=== PATIENT | male | born 1995 | race Caucasian/White ===

== ENCOUNTER → 2016-12-24 | Outpatient (CLI) | payer OTHER ==
[~2016-12-24] MED LIST: ASPI81TA28 PO; IBUP-1105 PO
[2016-12-24 17:30] LABS: BASO % 0.8 %; BASO ABS # 0.05 K/uL (0-0.2); COMPLETE YES; EOS % 2.3 %; HEMATOCRIT 43.8 % (42-52); IG% 0.3 %; LYMPH ABS # 1.44 K/uL (1.2-3.4); MEAN CORPUSCULAR HEMOGLOBIN 29.1 pg (25-34); MEAN CORPUSCULAR HGB CONC 34.2 g/dl (32-36); MEAN PLATELET VOLUME 11.7 fL (7.4-10.4); MONO % 8.7 %; NEUT % 63.9 %; PLATELET COUNT 238 K/uL (130-400); RED BLOOD COUNT 5.15 M/uL (4.7-6.1); WHITE BLOOD COUNT 5.99 K/uL (4.8-10.8)
[2016-12-24 18:22] LABS: ALT/SGPT 27 U/L (12-78); AST/SGOT 13 U/L (15-37); BLOOD UREA NITROGEN 8 mg/dl (7-18); BUN/CREATININE RATIO 6.6 (10-20); CALCIUM 8.8 mg/dl (8.5-10.1); CARBON DIOXIDE 28 mmol/L (21-32); CHLORIDE 105 mmol/L (98-107); GLUCOSE 110 mg/dl (70-99); POTASSIUM 3.7 mmol/L (3.5-5.1); SODIUM 139 mmol/L (136-145)
[2016-12-24 18:25] LABS: ALB/GLOB RATIO 1.2 (0.9-2); ALKALINE PHOSPHATASE 98 U/L (45-117)
== END | disposition home or self-care (01) ==
LOC: C.LABPBG 14:13
PROVIDERS: ATTEND Physician Assistant
DX: R10.11 Right upper quadrant pain (principal)

== ENCOUNTER → 2017-10-07 | Outpatient (CLI) | payer OTHER ==
[2017-10-07 18:08] LABS: BLOOD UREA NITROGEN 9 mg/dl (7-18); CALCIUM 8.8 mg/dl (8.5-10.1); CARBON DIOXIDE 27 mmol/L (21-32); CREATININE 1.24 mg/dl (0.60-1.40); GLUCOSE 125 mg/dl (70-99); POTASSIUM 3.4 mmol/L (3.5-5.1); SODIUM 136 mmol/L (136-145)
[2017-10-08 06:04] LABS: HEMOGLOBIN A1C 5.4 % (4.5-5.6)
== END | disposition home or self-care (01) ==
LOC: C.LABPBG 13:40
PROVIDERS: ATTEND Physician Assistant
DX: R63.1 Polydipsia (principal); R03.0 Elevated blood-pressure reading, without diagnosis of hypertension

== ENCOUNTER 2017-10-29 22:15 | Emergency (ER) | payer OTHER ==
[~2017-10-29] VITALS: Ht 172.7 cm; Wt 100.3 kg
[2017-10-29 22:17] VITALS: TEMP 37.2; Ht 172.7 cm; Wt 100.3 kg
--- NOTE | 2017-10-29 22:49 | EMERGENCY ROOM VISIT NOTE ---
History First contact with patient: 22:26 Chief Complaint: BACK INJURY Stated Complaint: BACK History of Present Illness The patient is a 22 year old male who presents to the Emergency Room for evaluation of back injury. 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 Severe stabbing pain. Worse with movement. Better with rest. No urinary nor bowel control issues. No leg pain. No other trauma nor other injuries. Denies cp, sob, nor other symptoms. No previous back injury per patient. No medications prior to arrival. PMH: Hypertension and Asthma Family: No pertinent issues Social: Works as [employer] at [employer] Review of Systems See HPI for pertinent positives & negatives. A total of 6 systems reviewed and were otherwise negative. Past Medical/Surgical History Medical Problems: (1) Gastritis (2) TIA (transient ischemic attack) Family History Patient reports no known family medical history. Social History Smoking Status: Never Smoker Drug Use: none Marital Status: single Housing Status: lives with family Current/Historical Medications Scheduled Metoprolol Succinate (Toprol Xl), 25 MG PO DAILY Sertraline (Zoloft), 100 MG PO DAILY Scheduled PRN Albuterol Hfa (Ventolin Hfa), 2-4 PUFFS INH Q6H PRN for SOB/Wheezing Physical Exam Vital Signs Date Time Temp Pulse Resp B/P (MAP) Pulse Ox O2 Delivery O2 Flow Rate FiO2 10/29/17 23:28 107 16 168/99 98 10/29/17 22:17 37.2 107 18 161/93 97 Room Air Physical Exam GENERAL: Patient is uncomfortable appearing and in mild distress. EYES: No scleral icterus, unremarkable pupils. ENT: Mucous membranes moist, no nasal congestion. NECK: No masses appreciated, no meningismus, trachea is midline. RESPIRATORY: No dyspnea. Clear to auscultation and equal bilaterally. No wheeze , no rhonchi. CARDIOVASCULAR: Regular rate and rhythm. No murmurs, rubs, gallops appreciated. GASTROINTESTINAL: Abdomen soft, nontender, no peritonitis. Bowel sounds positive. No masses appreciated. BACK: TTP over lower left back just above iliac crest to mid back. Otherwise no midline tenderness, no CVA tenderness EXTREMITIES: Normal motion all extremities, no cyanosis, no edema. NEUROLOGIC: Alert and oriented, no acute motor or sensory deficits, no focal weakness, cranial nerves grossly intact. SKIN: No rash, no jaundice, no diaphoresis. Medical Decision & Procedures ER Provider Diagnostic Interpretation: Lumbar Xrays: 4 view: read by me: indication acute back pain: Mild straightening. Some anterolisthesis. No fracture. No dislocation. Medical Decision Differential: Musculoskeletal, Disc Herniation, Fracture, Cord Compression, Discitis, Sciatica, Cauda Equina, amongst other pathologies entertained. 22 yr old male arrives with complaint of low back pain s/p lifting patient. No neuro deficits nor evidence of cord injury. Imaging without fracture. Likely MSK strain. NSAIDs, rest, Flexeril. Advised 48 hours rest then return to activities but I made clear to him that he must follow with employee health or PCP for full return to work instructions. Blood Pressure Screening Blood pressure disposition: Referred to PCP Impression Primary Impression: Strain of lumbar region Additional Impression: Hypertension Departure Information Dispostion Home / Self-Care Condition GOOD Referrals Employee Health or Primary Provider Patient Instructions ED Sprain Strain Lumbar, My [facility] Additional Instructions You should rest and avoid lifting, twisting, pulling, etc over the next 48 hours then gradually return to normal. Call your Employee Health tomorrow to set up follow up to determine return to work plan. Return to ED if you develop leg weakness, loss of bowel/bladder control, or out of control pain. We are always here to help. Your blood pressure was elevated during this visit. This is quite common in many people who are being evaluated in the Emergency Department for many reasons. However, it is important that you have your Primary Care Provider recheck your blood pressure and discuss whether treatment will be needed. superintendent container terminal elevated blood pressure can lead to strokes, heart attacks, kidney failure amongst other medical issues. If you develop severe headaches, chest pain, weakness in arms or legs, or other concerning symptoms call 911. Problem Qualifiers Primary Impression: Strain of lumbar region Encounter type: initial encounter Qualified Codes: S39.012A - Strain of muscle, fascia and tendon of lower back, initial encounter
[2017-10-29] MEDS ORDERED: CYCL10TA6 PO (23:20)
[2017-10-29 23:28] VITALS: BP 168/99; PULSE 107; O2SAT 98
[2017-10-29] MEDS ORDERED: SERT-234 PO (23:40)
[2017-10-29] MEDS ORDERED: METO25TA4 PO (23:41)
[2017-10-29] MEDS ORDERED: VNTHFA/IN INH (23:42)
--- NOTE | 2017-10-30 07:02 | DIAGNOSTIC IMAGING REPORT ---
L-SPINE MIN 4 VIEWS ROUTINE CLINICAL HISTORY: 22 years-old Male presenting with left low back pain s/p lifting heavy patient. TECHNIQUE: Frontal, bilateral oblique, lateral, and coned in lateral views of the lumbar spine were obtained. COMPARISON: None. FINDINGS: No significant scoliosis. Normal lumbar lordosis. Vertebral bodies maintain normal height and alignment. Intervertebral disc heights preserved. Mild anterior osteophytosis evident at L2-3. No compression deformity or evidence of subluxation. No osseous neural foraminal narrowing. No pars defect. 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 IMPRESSION: Mild degenerative change at L2-3. No acute osseous injury. Electronically signed by: Kostas Bauer M.D. 10/30/2017 7:01 AM Dictated Date/Time: 10/30/2017 6:59 AM
== END 2017-10-29 23:28 | disposition home or self-care (01) ==
LOC: C.EDB 22:17 → C.EDC 23:28
DX: S39.012A Strain of muscle, fascia and tendon of lower back, initial encounter (principal); X50.0XXA Overexertion from strenuous movement or load, initial encounter; Y99.0 Civilian activity done for income or pay; I10 Essential (primary) hypertension; Z86.73 Personal history of transient ischemic attack (TIA), and cerebral infarction without residual deficits

== ENCOUNTER → 2018-03-12 | Day surgery (SDC) | payer OTHER ==
[2018-03-05 10:23] VITALS: Ht 175.3 cm; Wt 100.0 kg
[~2018-03-12] VITALS: Ht 175.3 cm; Wt 100.0 kg
[~2018-03-12] MED LIST changes: -IBUP-1105 PO; +IOPAMIDOL INJ 61% 15 ML VIAL ONE; +LIDOCAINE HCL 1% MPF 5 ML VIAL ONE; +METO25TA4 PO; +SERT-234 PO; +SODIUM CHLORIDE 0.9% INJ 10 ML VIAL ONE; +VNTHFA/IN INH
--- NOTE | 2018-03-12 12:54 | History & Physical Bridge - [place] ---
H&P Re-Evaluation Bridge Note: I have examined the patient, reviewed the History & Physical and in the interval since the performance of the History & Physical I have noted the following changes of clinical significance: No changes noted
--- NOTE | 2018-03-12 13:22 | [facility] Post Operative Brief Note ---
Immediate Operative Summary Operative Date Mar 12, 2018. Pre-Operative Diagnosis L4-5 ANNULAR TEAR WITH LEFT LOWER EXTREMITY RADICULOPATHY Post-Operative Diagnosis SAME Procedure(s) Performed LUMBAR EPIDURAL STEROID INJECTION. Surgeon DR. Clint SMITH Vice President Fixed Income Surgeon(s) None Estimated Blood Loss None Findings Consistent with Post-Op Diagnosis Specimens NA Anesthesia Type Local Disposition Disposition:
--- NOTE | 2018-03-12 13:24 | Discharge Instructions ---
Discharge Instructions Date of Service Mar 12, 2018. Visit Reason for Visit: Lumbar Radiculopathy Discharge Discharge Diagnosis / Problem: left leg pain Discharge Goals Goal(s): Decrease discomfort, Improve function Medications Stopped Medications Name(s): ASA Activity Recommendations Activity Limitations: resume your previous activity Anesthesia . Post Anesthesia Instructions: If you have had General Anesthesia or IV Sedation: * Do not drive today. * Resume driving when surgeon permits. * Do not make important decisions or sign legal documents today. * Call surgeon for: 1. Temperature elevations greater than 101 degrees F. 2. Uncontrollable pain. 3. Excessive bleeding. 4. Persistent nausea and vomiting. 5. Medication intolerance (nausea, vomiting or rash). * For nausea and vomiting use only clear liquids such as: tea, soda, bouillon until nausea subsides, then gradually increase diet as tolerated. * If you have any concerns or questions, call your surgeon's office. If physician is unavailable and it is an emergency, call 911 or go to the nearest emergency room. . Diet Recommendations Recommended Home Diet: resume previous diet Procedures Procedures Performed: LUMBAR EPIDURAL STEROID INJECTION. Pending Studies Studies pending at discharge: no Medical Emergencies . Who to Call and When: Medical Emergencies: If at any time you feel your situation is an emergency, please call 911 immediately. . Non-Emergent Contact Non-Emergency issues call your: Specialist . . "Provider Documentation" section prepared by Shivam Guerrero. .
[2018-03-12 13:30] VITALS: TEMP 37.4
[2018-03-12 13:52] VITALS: BP 124/85; PULSE 88; O2SAT 97
--- NOTE | 2018-03-12 13:56 | OPERATIVE REPORT ---
DATE OF OPERATION: 03/12/2018 PREOPERATIVE DIAGNOSES: L4-L5 annular tear with left lower extremity L4-L5 radiculopathies. POSTOPERATIVE DIAGNOSES: L4-L5 annular tear with left lower extremity L4-L5 radiculopathies. PROCEDURE: Left paramedian L4-L5 intralaminar epidural steroid injection under fluoroscopic guidance. INDICATIONS: The patient is a 22-year-old white male who has had problems with left lower extremity radiculopathy including pain in the leg giving out. MRI revealed a L4-L5 annular tear contacting the L4 nerve root, close approximation of the L5 nerve root on the left side. He presents today for an epidural injection to provide him with relief. PHYSICAL EXAMINATION: GENERAL: Pleasant male seated comfortably. MUSCULOSKELETAL: Lumbar paraspinal muscles were palpated. He had a positive seated straight leg raise of his left lower extremity, decreased sensitivity in the left L5 dermatomal distribution. CONSENT: Verbal and written consent was obtained from the patient. Risks and benefits were reviewed. Risks include but are not limited to epidural abscess, epidural hematoma, allergic reaction, dural puncture. The patient wishes to proceed. DESCRIPTION OF PROCEDURE: The patient was taken back to the special procedures room of [facility] where he was maintained in a prone position. Backside was cleansed with Betadine x3 and a dry sterile dressing was applied. Fluoroscope was used to identify the L4-L5 intralaminar space and overlying skin was anesthetized on the left side with 4 mL of lidocaine 1% with a 25-gauge 1.5-inch needle. A 22-gauge 3.5-inch Tuohy needle was then directed down towards the intralaminar space. It was advanced under lateral fluoroscopic guidance as it was passed down into the muscle space, he had a painful sensation. He felt radiated down the leg, it was probably about 2 inches and the area was then re-anesthetized with an additional mL of lidocaine 1% and then advanced to a depth of 8.5 cm with a presumed loss of resistance. Isovue-300 contrast 1 mL demonstrated to be on the dorsal side of the ligamentum flavum. It was advanced to 0.5 cm to a depth just under 9 cm. Additional 0.5 mL of Isovue was injected and showed it to be in epidural tracing. He then underwent injection after negative aspiration of 40 mg of Depo-Medrol and 4 mL of preservative-free sodium chloride. Injection was well tolerated and reproduced a familiar transient radicular sensation down the leg. DISPOSITION: 1. The patient is taken out into the discharge recovery area where he will be discharged home once discharge criteria are met. 2. Follow up in the [facility] office in 4 weeks' time. I attest to the content of the Intraoperative Record and any orders documented therein. Any exception s are noted below.
== END | disposition home or self-care (01) ==
LOC: X.SURG 11:51
PROVIDERS: ATTEND Physical Medicine & Rehabilitation
DX: M51.86 Other intervertebral disc disorders, lumbar region (principal); M54.16 Radiculopathy, lumbar region; Z79.899 Other long term (current) drug therapy

== ENCOUNTER → 2018-03-26 | Outpatient (CLI) | payer OTHER ==
[~2018-03-26] MED LIST changes: -IOPAMIDOL INJ 61% 15 ML VIAL ONE; -LIDOCAINE HCL 1% MPF 5 ML VIAL ONE; -SODIUM CHLORIDE 0.9% INJ 10 ML VIAL ONE
== END | disposition home or self-care (01) ==
LOC: C.LABPBG 11:18
PROVIDERS: ATTEND Physician Assistant
DX: M25.50 Pain in unspecified joint (principal)

== ENCOUNTER 2024-11-17 18:32 | Observation (INO) ==
[2024-11-17 19:34] LABS: Basophils # (auto) 0.06 K/uL (0.00-0.20); Basophils % (auto) 0.5 %; Eosinophils # (auto) 0.02 K/uL (0.00-0.50); Eosinophils % (auto) 0.2 %; Hematocrit (blood only) 46.9 % (42.0-52.0); Hemoglobin 16.1 g/dl (14.0-18.0); Immature Granulocytes # (auto) 0.06 K/uL (0.01-0.20); Immature Granulocytes % (auto) 0.5 %; Lymphocytes # (auto) 0.84 K/uL (1.20-3.40); Lymphocytes % (auto) 6.4 %; Mean Corpuscular Hemoglobin 28.1 pg (25.0-34.0); Mean Corpuscular Hgb Conc 34.3 g/dL (32.0-36.0); Mean Platelet Volume 10.8 fL (9.4-12.4); Monocytes # (auto) 0.52 K/uL (0.11-0.59); Monocytes % (auto) 3.9 %; Neutrophils # (auto) 11.67 K/uL (1.40-6.50); Neutrophils % (auto) 88.5 %; Platelet Count 390 K/uL (130-400); RDW Coefficient of Variation 12.9 % (11.5-14.5); RDW Standard Deviation 38.4 fL (36.4-46.3); Red Blood Count 5.72 M/uL (4.70-6.10); White Blood Count 13.17 K/ul (4.8-10.8)
[2024-11-17 19:42] LABS: Appearance Urine Clear (Clear); Bilirubin Urine Negative (Negative); Blood Urine Negative (Negative); Color Urine Yellow; Glucose Urine UA Negative (Negative); Ketones Urine Negative (Negative); Leukocyte Esterase Urine Negative (Negative); Nitrite Urine Negative (Negative); Protein Urine Negative (Negative); Specific Gravity Urine 1.003 (1.000-1.030); Urobilinogen Urine Negative (Negative); pH Urine 6.5 (4.5-7.5)
[2024-11-17 19:58] LABS: Alanine Aminotransferase 54 U/L (7-52); Albumin Globulin Ratio 1.5 (0.9-2); Albumin Level 5.6 gm/dl (3.4-5.0); Alkaline Phosphatase 89 U/L (34-104); BUN Creatinine Ratio 6.4 (10-20); Bilirubin,Total 0.7 mg/dl (0.2-1.0); Blood Urea Nitrogen 7 mg/dl (6-23); Calcium 10.8 mg/dl (8.6-10.3); Carbon Dioxide 29 mmol/L (21-32); Chloride 100 mmol/L (98-107); Creatinine Clr Calc Pharmacy 116.3 ml/min; Globulin 3.7 gm/dl (2.5-4.0); Glucose 108 mg/dl (70-99(Fasting)); Lipase 16 U/L (11-82); Total Protein 9.3 gm/dl (6.0-8.3)
[2024-11-17] MEDS: OPTIRAY 320 100ml IV ONE (20:23)
--- NOTE | 2024-11-17 21:41 | Emergency Department Note ---
History of Present Illness General Chief complaint: Abdominal Pain Stated complaint: ABD PAIN Time Seen by Provider: 11/17/24 21:27 History of Present Illness Maximum Pain Intensity: 5 This is a 29-year-old male presenting to the emergency department from home for evaluation of right-sided abdominal pain. Patient symptoms began yesterday and are primarily in the right side low back and right lower quadrant. He went to [facility] today, where he had blood work and CT scan performed. He was told that he had an inflamed appendix, however it was not felt to be surgical by their surgeons. He was given antibiotics and discharged to follow- up as an outpatient. Patient continues with pain despite leaving that facility around 5 PM. He elected to come to this facility immediately afterwards. He does not have a history of abdominal surgery. He has not had anything to eat or drink today. He rates his discomfort a 5/10 and is frustrated that he did not get a definitive answer from the other hospital. He did receive Toradol at that facility and had a large bowel movement, both of which seem to help his symptoms. Home Medications Medication Instructions Recorded Confirmed Type hydroxyzine HCl 25 mg tablet 25 mg PO BID PRN anxiety #60 tabs 07/01/23 11/17/24 Rx albuterol sulfate 90 mcg/actuation 1 - 2 inh inhalation .Q4-6HR PRN 11/17/24 11/17/24 History aerosol inhaler (Ventolin HFA) shortness of breath or wheezing amlodipine 10 mg tablet 10 mg PO HS 11/17/24 11/17/24 History cholecalciferol (vitamin D3) 125 5,000 unit PO HS 11/17/24 11/17/24 History mcg (5,000 unit) tablet (Vitamin D3) clonidine HCl 0.1 mg tablet 0.1 mg PO HS 11/17/24 11/17/24 History sertraline 100 mg tablet 100 mg PO QAM 11/17/24 11/17/24 History oxycodone 5 mg tablet 5 - 10 mg (1 - 2 x 5 mg) PO 11/18/24 Rx .[id number] PRN pain, for initial therapy, max 6 tabs per day #12 tabs Allergies Allergy/AdvReac Type Severity Reaction Status Date / Time hydrochlorothiazide Allergy Severe Anaphylaxis Verified 11/17/24 22:45 fenofibrate Allergy Intermediate Hives Verified 11/17/24 22:45 ondansetron Allergy Intermediate itching Verified 11/17/24 22:45 atorvastatin AdvReac Intermediate muscle Verified 11/17/24 22:45 aches gemfibrozil AdvReac Intermediate LEG PAIN Verified 11/17/24 22:45 citalopram AdvReac Mild foggy Verified 11/17/24 22:45 Past Med/Surg History Problem List (Updated 11/18/24 @ 21:16 by Chriss Pinon PA-C) Appendicitis (Acute) Transient ischemic attack (TIA) 2014 (NO CURRENT PROBLEMS) Vitamin D deficiency Obesity Hypertriglyceridemia Mild aortic sclerosis Dyslipidemia Depression Asthma Hypertension Migraine Anxiety GERD (gastroesophageal reflux disease) Medical History (Updated 11/18/24 @ 21:16 by Chriss Pinon PA-C) Gastric ulcer Hypermagnesemia Protrusion of lumbar intervertebral disc Abnormal mammogram of right breast Degenerative disc disease Temporomandibular joint disorder Surgical History (Updated 11/18/24 @ 11:58 by Jessica Garcia RN) History of laparoscopic appendectomy (11/18/24) Laparoscopic Appendectomy(Not Applicable) - Oscar Weir DO History of tooth extraction Family History Mother Family history of diabetes mellitus Anxiety Heart disease Gallbladder disease Hypertension Kidney disease Kidney stones Cancer Ovarian Ovarian cancer Diabetes Family/Other Family hx colonic polyps Myocardial infarction Grandmother (Maternal) Family hx colonic polyps Father Anxiety Bipolar disorder Heart disease Depression Gallbladder disease Hypertension Kidney disease Kidney stones Diabetes TYPE 2 Sister Anxiety Grandfather (Maternal) Prostate cancer Aunt Diabetes Uncle Diabetes Denies family history of Breast cancer Colorectal cancer Social History Smoking Status: Never smoker Tobacco Type: Smokeless Tobacco (Dip or Chew) Age Started Using Tobacco: 17; Cigarettes Per Day: 2-3 per week; Second Hand Exposure: No; Do You Dip or Chew Tobacco: Yes; Hx Alcohol Use: No Hx Substance Use: No Preferred Language: Ivorian Communication Ability: Effective Visual Impairment: No Limitations Hearing Ability: Normal Collection Correspondent Required: No Beliefs That Will Affect Care: None marital status: Current Living Situation: Spouse Current Living Situation Comment: Lives with and two children. current occupational status: employed How many Children do You have: 2 Feels Safe at Home: Yes Childhood Exposure to Second-Hand Smoke: Yes Diet: regular caffeine: Yes (soda x 2 cups per day.) during the past year weight has: remained stable Dental Care, Regularly: No Physical Activity Frequency: Daily Physical Activity Frequency Comment: Limited by physical activity Seatbelt Use: always Sunscreen Use: No Assistive Devices: None Review of Systems A total of 10 systems reviewed and were otherwise negative Physical Exam Vital Signs Vital Signs - 24 hr 11/17/24 21:49 11/17/24 22:00 11/17/24 23:09 Pulse Rate 81 78 81 Pulse Rate from SpO2 Sensor 78 79 Respiratory Rate 20 21 Blood Pressure 114/88 142/103 H Blood Pressure Mean 91 116 Pulse Oximetry 95 96 11/18/24 00:00 Pulse Rate 77 Pulse Rate from SpO2 Sensor 80 Respiratory Rate 16 Blood Pressure 154/93 H Blood Pressure Mean 113 Pulse Oximetry 97 VITALS: Vitals are noted on the nurse's note and reviewed by myself. Vital signs stable. GENERAL: Well-developed, well-nourished, white male, who is in no acute distress and resting comfortably. Patient is cooperative with the examination. HEAD: Normocephalic atraumatic. NECK: Supple without nuchal rigidity. No lymphadenopathy. No thyromegaly. Cervical spine is nontender. HEART: Regular rate and rhythm without murmurs gallops or rubs. LUNGS: Clear to auscultation bilaterally without wheezes, rales or rhonchi. No retractions or accessory muscle use. ABDOMEN: Positive normal bowel sounds x 4. Soft, nontender, without masses or organomegaly. No guarding or rebound tenderness. MUSCULOSKELETAL: No muscle atrophy, erythema, or edema noted. Full range of motion in all extremities. No tenderness to palpation. NEURO: Patient was alert and oriented to person place and time. CN II through XII grossly intact. Course Administered Medications Discontinued Medications Amlodipine Besylate (Amlodipine Besylate 5 Mg Tab) 10 mg PO NOW ONE Stop: 11/18/24 00:30 Last Admin: 11/18/24 01:29 Dose: 10 mg Documented By: LOTTIE Bupivacaine HCl/Epinephrine Bitart (Bupivacaine/Epinephrine 0.5% Mpf 1:200,000 30 Ml Vial) Confirm Administered Dose 30 ml .ROUTE .STK-MED ONE Stop: 11/18/24 10:12 Last Admin: 11/18/24 10:58 Dose: 30 ml Documented By: ALEX Clonidine HCl (Clonidine Hcl 0.1 Mg Tab) 0.1 mg PO NOW ONE Stop: 11/18/24 00:30 Last Admin: 11/18/24 01:29 Dose: 0.1 mg Documented By: LOTTIE Piperacillin Sod/Tazobactam Sod (Zosyn) 4.5 gm in 100 mls @ 200 mls/hr IV NOW ONE; Protocol Stop: 11/18/24 00:50 Last Infusion: 11/18/24 02:38 Dose: Infused Documented By: Admin: 11/18/24 01:29 Dose: 200 mls/hr Documented By: LOTTIE Sodium Chloride (Nss) 1,000 mls @ 100 mls/hr IV .Q10H JETHRO Stop: 11/19/24 00:29 Last Admin: 11/18/24 12:14 Dose: Not Given Documented By: Admin: 11/18/24 01:33 Dose: 100 mls/hr Documented By: LOTTIE Acetaminophen (Ofirmev) 1,000 mg in 100 mls @ 400 mls/hr IV Q8H PRN PRN Reason: Moderate Pain (Scale 4, 5, 6) Stop: 11/21/24 00:20 Last Infusion: 11/18/24 12:45 Dose: Infused Documented By: Admin: 11/18/24 12:30 Dose: 400 mls/hr Documented By: MARGOT Piperacillin Sod/Tazobactam Sod (Zosyn) 4.5 gm in 100 mls @ 25 mls/hr IV Q8H JETHRO; Protocol Stop: 11/28/24 07:59 Last Infusion: 11/18/24 12:38 Dose: Infused Documented By: Admin: 11/18/24 08:38 Dose: 25 mls/hr Documented By: MARGOT Ioversol (Optiray 320 100ml) 93 ml IV ONCE ONE Stop: 11/17/24 20:23 Last Admin: 11/17/24 20:23 Dose: 93 ml Documented By: MIRANDA Medical Decision Making Differential Diagnosis Differential diagnosis: Etiologies such as biliary colic, cholecystitis, hepatitis, pancreatitis, cardiac disease, pancreatitis, gastritis, peptic ulcer disease, appendicitis, cystitis, diverticulitis, mesenteric ischemia, inflammatory bowel disease, ileus, bowel obstruction, testicular/adnexal torsion, aortic pathology, shingles, as well as others were considered Laboratory Data 11/18/24 06:07 11/18/24 06:07 Lab Results 11/17/24 11/17/24 Range/Units 19:15 20:31 WBC 13.17 H (4.8-10.8) K/ul RBC 5.72 (4.70-6.10) M/uL Hgb 16.1 (14.0-18.0) g/dl Hct 46.9 (42.0-52.0) % MCV 82.0 (80.0-100.0) fL MCH 28.1 (25.0-34.0) pg MCHC 34.3 (32.0-36.0) g/dL RDW Std Deviation 38.4 (36.4-46.3) fL RDW Coeff of Tana 12.9 (11.5-14.5) % Plt Count 390 (130-400) K/uL MPV 10.8 (9.4-12.4) fL Immature Gran % (Auto) 0.5 % Neut % (Auto) 88.5 % Lymph % (Auto) 6.4 % Ida % (Auto) 3.9 % Eos % (Auto) 0.2 % Baso % (Auto) 0.5 % Neut # (Auto) 11.67 H (1.40-6.50) K/uL Lymph # (Auto) 0.84 L (1.20-3.40) K/uL Ida # (Auto) 0.52 (0.11-0.59) K/uL Eos # (Auto) 0.02 (0.00-0.50) K/uL Baso # (Auto) 0.06 (0.00-0.20) K/uL Immature Gran # (Auto) 0.06 (0.01-0.20) K/uL Sodium TNP 134 L Potassium TNP 4.0 Chloride 100 (98-107) mmol/L Carbon Dioxide 29 (21-32) mmol/L Anion Gap TNP BUN 7 (6-23) mg/dl Creatinine 1.10 (0.6-1.4) mg/dl Est Cr Clr Drug Dosing 116.3 ml/min eGFR 93.19 BUN/Creatinine Ratio 6.4 L (10-20) Glucose 108 H (70-99(Fasting)) mg/dl Calcium 10.8 H (8.6-10.3) mg/dl Total Bilirubin 0.7 (0.2-1.0) mg/dl AST TNP 19 ALT 54 H (7-52) U/L Alkaline Phosphatase 89 (34-104) U/L Total Protein 9.3 H (6.0-8.3) gm/dl Albumin 5.6 H (3.4-5.0) gm/dl Globulin 3.7 (2.5-4.0) gm/dl Albumin/Globulin Ratio 1.5 (0.9-2) Lipase 16 (11-82) U/L Urine Color Yellow Urine Appearance Clear (Clear) Urine pH 6.5 (4.5-7.5) Ur Specific [place] 1.003 (1.000-1.030) Urine Protein Negative (Negative) Urine Glucose (UA) Negative (Negative) Urine Ketones Negative (Negative) Urine Blood Negative (Negative) Urine Nitrite Negative (Negative) Urine Bilirubin Negative (Negative) Urine Urobilinogen Negative (Negative) Ur Leukocyte Esterase Negative (Negative) Imaging Data Radiologist's Impression: Abdomen/Pelvis CT 11/17/24 20:05 Exam(s): CT ABDOMEN + PELVIS With Contrast IV Amt: 93 ml opti 320 EXAM: CT Abdomen and Pelvis With Intravenous Contrast CLINICAL HISTORY: Reason for exam: RLQ abd pain. TECHNIQUE: Axial computed tomography images of the abdomen and pelvis with intravenous contrast. CTDI is 27.15 mGy and DLP is 1535.92 mGy-cm. Automated exposure control was utilized for the study. A dose lowering technique was utilized adhering to the principles of ALARA. CONTRAST: Patient received 93 ml opti 320 of IV contrast COMPARISON: No relevant prior studies available. FINDINGS: ABDOMEN: Liver: Hepatic steatosis. Gallbladder and bile ducts: Unremarkable. Pancreas: Unremarkable. Spleen: Unremarkable. Adrenals: Unremarkable. Kidneys and ureters: Unremarkable. No obstructing stones. No hydronephrosis. Stomach and bowel: Unremarkable. PELVIS: Appendix: Proximal appendix distended up to 1.1 cm. The distal portion of the appendix is nondistended. No appendicolith or significant inflammation. Bladder: Unremarkable. Reproductive: Unremarkable as visualized. ABDOMEN and PELVIS: Intraperitoneal space: Acute abnormality within the abdomen or pelvis. No free air. No significant fluid collection. Bones/joints: No acute fracture. Soft tissues: Unremarkable. Vasculature: Unremarkable. Lymph nodes: Unremarkable. IMPRESSION: 1. Proximal appendix distended up to 1.1 cm. The distal portion of the appendix is nondistended. No appendicolith or significant inflammation. Findings are equivocal for acute appendicitis. 2. Hepatic steatosis. Electronically signed by: Cipriano Brooke MD 11/17/24 23:17 PM MDM Narrative Physical exam and history were performed. Nursing notes, EMR, and Medication List were personally reviewed. No social concerns were identified as barriers to patients care. History was provided by the Patient. Patient appears to have right-sided abdominal pain bring him to the ER. He reportedly has an enlarged appendix based on evaluation at another facility earlier today. I do not have access to those records. IV access was established and labs were obtained. He was made n.p.o. and hydrated with normal saline. Patient's blood work is as above and was reviewed. He does have a slightly elevated white count of 13,000. He does not have significant anemia, bandemia, or gross electrolyte imbalance. Lipase and transaminases are not diagnostic. Urine without distinct evidence of infection. Because of his pain and elevated white count CT scan of the abdomen and pelvis was performed with IV contrast. CT scan was reviewed by myself and radiology and is equivocal for acute appendicitis. Escalation of care is felt to be necessary. Case was discussed with the on-call surgical team, who did agree to evaluate the patient here in the ER. Please see their dictation for further patient course, plan, and disposition. The chart was completed utilizing [employer] Speech Voice Recognition Software. Grammatical errors, random word insertions, pronoun errors, and incomplete sentences are an occasional consequence of this system due to software limitations, ambient noise, and hardware issues. Any formal questions or concerns about the content, text, or information contained within the body of this dictation should be directly addressed to the provider for clarification. Impression & Plan Appendicitis Discharge Plan Visit Data Chief Complaint: Abdominal Pain Stated Complaint: ABD PAIN ED Provider: Jarod Padilla ED Midlevel Provider: Chriss Pinon Discharge Problem: Appendicitis Patient Disposition: Admitted As Inpatient Discharge Instructions Interventions: ED Discharge Assessment Last Done: 11/18/24 01:52
--- NOTE | 2024-11-17 23:17 | CT Scan Report ---
Exam(s): CT ABDOMEN + PELVIS With Contrast IV Amt: 93 ml opti 320 EXAM: CT Abdomen and Pelvis With Intravenous Contrast CLINICAL HISTORY: Reason for exam: RLQ abd pain. TECHNIQUE: Axial computed tomography images of the abdomen and pelvis with intravenous contrast. CTDI is 27.15 mGy and DLP is 1535.92 mGy-cm. Automated exposure control was utilized for the study. A dose lowering technique was utilized adhering to the principles of ALARA. CONTRAST: Patient received 93 ml opti 320 of IV contrast COMPARISON: No relevant prior studies available. FINDINGS: ABDOMEN: Liver: Hepatic steatosis. Gallbladder and bile ducts: Unremarkable. Pancreas: Unremarkable. Spleen: Unremarkable. Adrenals: Unremarkable. Kidneys and ureters: Unremarkable. No obstructing stones. No hydronephrosis. Stomach and bowel: Unremarkable. PELVIS: Appendix: Proximal appendix distended up to 1.1 cm. The distal portion of the appendix is nondistended. No appendicolith or significant inflammation. Bladder: Unremarkable. Reproductive: Unremarkable as visualized. ABDOMEN and PELVIS: Intraperitoneal space: Acute abnormality within the abdomen or pelvis. No free air. No significant fluid collection. Bones/joints: No acute fracture. Soft tissues: Unremarkable. Vasculature: Unremarkable. Lymph nodes: Unremarkable. IMPRESSION: 1. Proximal appendix distended up to 1.1 cm. The distal portion of the appendix is nondistended. No appendicolith or significant inflammation. Findings are equivocal for acute appendicitis. 2. Hepatic steatosis. Electronically signed by: Cipriano Brooke MD 11/17/24 23:17 PM
[2024-11-18] MEDS ORDERED: MoRPHine SULFATE 4 MG/ML 1 ML CARP\\VIAL IV PRN ×2 (00:21→11:55)
--- NOTE | 2024-11-18 00:21 | History & Physical Report ---
Date of Service November 18, 2024 Assessment & Plan (1) Appendicitis: Plan: Due to the findings on imaging as well as the patient's lab work and reported symptomatology he will be admitted to the surgical service proceeding as follows: Will continue patient on antibiotics. He was prescribed oral Augmentin at a previous institution so we will maintain him on Zosyn Will implement n.p.o. status Will hydrate with IV fluids Analgesia will be provided Antiemetics we provided I discussed the case with my attending physician and then discussed with the patient and we provided the patient with 3 possible options: Patient be discharged home on oral antibiotics (my attending physician felt that this was a least febrile option due to the findings on CT scan as well as the patient's elevated white blood cell count) Patient be admitted to the hospital we can observe him on antibiotics and repeat laboratories in the morning and a determination will be made if patient will require surgery Patient admitted to the hospital, placed on oral antibiotics and tentatively scheduled for appendectomy with Dr. Weir the morning of 11/18/2024 After careful consideration the patient is agreeable to admission to the hospital. We will tentatively place him on the surgical schedule for Dr. Weir but prior to definitively committing to surgery the patient would like to discuss further with Dr. Weir in the morning. Will use SCDs for DVT prevention, no chemical means until his ascertain whether or not the patient will require surgery He will be a level 1 full code As above. Clinically consistent with acute appendicitis. He has a history of this in the past in [place] treated with antibiotics alone. We discussed the risks as well as options. Risks include bleeding, infection, injury to other organ, blood clots etc. Following our discussion I answered all of his questions. We will proceed this morning with laparoscopic appendectomy. History of Present Illness Chief Complaint: Possible appendicitis Primary Care Provider: Yumiko Malcolm This is a 29-year-old male who presented to [facility] emergency department secondary to right flank pain. Patient notes that earlier today he developed some right-sided flank pain for which he presented to [facility]. He said that while at [facility] he did have a CT scan where there is concern he may have had appendicitis. The patient further reports they could not definitively ascertain if he had appendicitis because he was told that they did not utilize contrast on his CT scan. They therefore discharged the patient home on oral Augmentin. Patient then presented to [facility] due to similar concerns. As noted he had some right flank pain earlier today. He did not have any fevers, shakes, or chills. He did not report any nausea or vomiting. He notes that he has never had any abdominal surgeries. Of note, the patient does report that several years ago he did have some right sided abdominal pain and he was told that he had a "dilated appendix". Since arrival to the hospital the patient has had labs and imaging which I independent reviewed. A CT scan of the abdomen pelvis showed the patient's proximal appendix was distended to approximately 1.1 cm. The distal portion of the appendix was not distended. There is no appendicolith or significant inflammation of the appendix. The interpreting radiologist felt these findings were equivocal for appendicitis. Labs included CBC white blood cell count was elevated 13.1. Hemoglobin and hematocrit were both noted to be normal. Platelet count was noted to be normal. Chemistry profile showed sodium is 134 with a potassium of 4.0. BUN and creatinine were both normal. The urinalysis was not indicative of infection. At the time my interview the patient was resting comfortably in bed he was in no distress. Concerning past medical history the patient reports he has a history of hypertension, asthma which is well-controlled, and anxiety Concerning past surgical history he denies ever having any surgeries requiring general anesthesia. Concerning social history he does not smoke but he uses smokeless tobacco. Concerning family history he does not report a family history of anesthesia complications. Allergies Allergy/AdvReac Type Severity Reaction Status Date / Time hydrochlorothiazide Allergy Severe Anaphylaxis Verified 11/17/24 22:45 fenofibrate Allergy Intermediate Hives Verified 11/17/24 22:45 ondansetron Allergy Intermediate itching Verified 11/17/24 22:45 atorvastatin AdvReac Intermediate muscle Verified 11/17/24 22:45 aches gemfibrozil AdvReac Intermediate LEG PAIN Verified 11/17/24 22:45 citalopram AdvReac Mild foggy Verified 11/17/24 22:45 Home Medications Medication Instructions Recorded Confirmed Type hydroxyzine HCl 25 mg tablet 25 mg PO BID PRN anxiety #60 tabs 07/01/23 11/17/24 Rx albuterol sulfate 90 mcg/actuation 1 - 2 inh inhalation .Q4-6HR PRN 11/17/24 11/17/24 History aerosol inhaler (Ventolin HFA) shortness of breath or wheezing amlodipine 10 mg tablet 10 mg PO HS 11/17/24 11/17/24 History amoxicillin 875 mg-potassium 1 tab PO BID 11/17/24 11/17/24 History clavulanate 125 mg tablet cholecalciferol (vitamin D3) 125 5,000 unit PO HS 11/17/24 11/17/24 History mcg (5,000 unit) tablet (Vitamin D3) clonidine HCl 0.1 mg tablet 0.1 mg PO HS 11/17/24 11/17/24 History sertraline 100 mg tablet 100 mg PO QAM 11/17/24 11/17/24 History oxycodone 5 mg tablet 5 - 10 mg (1 - 2 x 5 mg) PO 11/18/24 Rx .[id number] PRN pain, for initial therapy, max 6 tabs per day #12 tabs Past Med/Surg History Problem List (Updated 11/18/24 @ 00:18 by Alexsander Menard PA-C) Appendicitis Transient ischemic attack (TIA) 2014 (NO CURRENT PROBLEMS) Vitamin D deficiency Obesity Hypertriglyceridemia Mild aortic sclerosis Dyslipidemia Depression Asthma Hypertension Migraine Anxiety GERD (gastroesophageal reflux disease) Medical History Gastric ulcer Hypermagnesemia Protrusion of lumbar intervertebral disc Abnormal mammogram of right breast Degenerative disc disease Temporomandibular joint disorder Surgical History History of tooth extraction Family History Mother Family history of diabetes mellitus Anxiety Heart disease Gallbladder disease Hypertension Kidney disease Kidney stones Cancer Ovarian Ovarian cancer Diabetes Family/Other Family hx colonic polyps Myocardial infarction Grandmother (Maternal) Family hx colonic polyps Father Anxiety Bipolar disorder Heart disease Depression Gallbladder disease Hypertension Kidney disease Kidney stones Diabetes TYPE 2 Sister Anxiety Grandfather (Maternal) Prostate cancer Aunt Diabetes Uncle Diabetes Denies family history of Breast cancer Colorectal cancer Social History Smoking Status: Never smoker Tobacco Type: Smokeless Tobacco (Dip or Chew) Age Started Using Tobacco: 17; Cigarettes Per Day: 2-3 per week; Second Hand Exposure: No; Do You Dip or Chew Tobacco: Yes; Tobacco Cessation Education Requested by Patient: No Hx Alcohol Use: No Hx Substance Use: No Preferred Language: Kittitian Communication Ability: Effective Visual Impairment: No Limitations Hearing Ability: Normal Optometrist Required: No Beliefs That Will Affect Care: None marital status: Current Living Situation: Spouse Current Living Situation Comment: Lives with and two children. current occupational status: employed How many Children do You have: 2 Other Information That Helps Us Care for You: No Feels Safe at Home: Yes Safety Concerns: Feels Safe At This Time Childhood Exposure to Second-Hand Smoke: Yes Diet: regular caffeine: Yes (soda x 2 cups per day.) during the past year weight has: remained stable Dental Care, Regularly: No Physical Activity Frequency: Daily Physical Activity Frequency Comment: Limited by physical activity Seatbelt Use: always Sunscreen Use: No Assistive Devices: None Review of Systems Review of Systems: All systems reviewed & are unremarkable except as noted in HPI & below Physical Exam Constitutional: well developed; + not well nourished and no acute distress Eyes: no conjunctival abnormality ENMT: Ears: no hearing impairment and no external ear abnormality Mouth: no oropharynx abnormality Neck: trachea midline Respiratory: normal respiratory effort; no respiratory distress and no labored breathing Cardiovascular: Rate/Rhythm: regular rate and regular rhythm Gastrointestinal (Abdomen): At the time of my exam patient's abdomen is soft without distention. There is no rebound tenderness or guarding. There are no signs of peritonitis. Patient only had very faint pressure reported when palpating the right lower quadrant. Musculoskeletal: No calf tenderness Skin: no rashes Neurologic: moves all extremities Psychiatric: A+Ox3, euthymic affect Genitourinary: No CVA tenderness with percussion bilaterally Results & Data Results & Data Vital Signs (Past 12 Hours) Vital Signs Temp Pulse Resp BP Pulse Ox O2 Del Method 11/17/24 23:09 81 21 142/103 H 96 11/17/24 22:00 78 20 114/88 95 11/17/24 21:49 81 11/17/24 19:00 36.7 C 92 H 18 169/104 H 98 Room Air PG Care Time/CCT Total # of Minutes Spent Total Time Spent with Patient: Total time spent is greater than 50% in coordination of care (as documented) at patient's floor/unit and/or counseling patient: Coding Level of Care Code 30276 INT INP/OBS CARE MIN Diagnoses Appendicitis K37
[2024-11-18] MEDS: cloNIDine HCL 0.1 MG TAB PO ONE (01:29)
[2024-11-18] MEDS: amLODIPine BESYLATE 5 MG TAB PO ONE (01:29)
[2024-11-18] MEDS: PIPERACILLIN/TAZOBACTAM 4.5 GM/100 ML BAG IV ONE (01:29)
[2024-11-18] MEDS: SODIUM CHLORIDE 0.9% 1,000 ML IV SCH (01:33)
[2024-11-18] MEDS ORDERED: hydrOXYzine HCl 25 MG TAB PO PRN (02:25)
[2024-11-18] MEDS ORDERED: ALBUTEROL HFA 8 GM INHALER INH PRN (02:25)
[2024-11-18 03:43] LABS: Partial Thromboplastin Ratio 1.1; Partial Thromboplastin Time 30 Seconds (21-31); Prothrombin Time 10.7 Seconds (9.0-12.0)
[2024-11-18 06:43] LABS: Basophils # (auto) 0.08 K/uL (0.00-0.20); Basophils % (auto) 0.9 %; Eosinophils # (auto) 0.05 K/uL (0.00-0.50); Eosinophils % (auto) 0.5 %; Hematocrit (blood only) 39.2 % (42.0-52.0); Hemoglobin 13.4 g/dl (14.0-18.0); Immature Granulocytes # (auto) 0.15 K/uL (0.01-0.20); Immature Granulocytes % (auto) 1.6 %; Lymphocytes # (auto) 1.27 K/uL (1.20-3.40); Lymphocytes % (auto) 13.8 %; Mean Corpuscular Hemoglobin 27.9 pg (25.0-34.0); Mean Corpuscular Hgb Conc 34.2 g/dL (32.0-36.0); Mean Corpuscular Volume 81.7 fL (80.0-100.0); Mean Platelet Volume 10.5 fL (9.4-12.4); Monocytes # (auto) 0.74 K/uL (0.11-0.59); Neutrophils # (auto) 6.94 K/uL (1.40-6.50); Neutrophils % (auto) 75.2 %; Platelet Count 284 K/uL (130-400); RDW Coefficient of Variation 12.9 % (11.5-14.5); RDW Standard Deviation 38.6 fL (36.4-46.3); White Blood Count 9.23 K/ul (4.8-10.8)
[2024-11-18 07:40] LABS: Calcium 9.3 mg/dl (8.6-10.3); Potassium 3.7 mmol/L (3.5-5.1)
[2024-11-18 07:46] LABS: BUN Creatinine Ratio 9.3 (10-20); Creatinine Clr Calc Pharmacy 118.5 ml/min
[2024-11-18] MEDS ORDERED: DEXAMETHASONE SOD INJ 4 MG/ML VIAL ONE (08:26)
[2024-11-18] MEDS ORDERED: PROPOFOL IV EMULSION 10 MG/ML 20 ML VIAL IV ONE (08:26)
[2024-11-18] MEDS ORDERED: MIDAZOLAM HCL 1 MG/ML 2ML VIAL ONE (08:26)
[2024-11-18] MEDS ORDERED: fentaNYL citrate PF 100 MCG/2 ML VIAL ONE ×2 (08:26→10:41)
[2024-11-18] MEDS ORDERED: ONDANSETRON INJ 2 MG/ML 2 ML VIAL ONE (08:26)
[2024-11-18] MEDS ORDERED: LIDOCAINE 2% 2 ML VIAL/AMP(20MG/ML) INFIL ONE (08:26)
[2024-11-18] MEDS ORDERED: ROCURONIUM BROMIDE 10 MG/ML 5 ML VIAL IV ONE (08:26)
--- OUTSIDE RECORDS SUMMARY | 2024-11-18 08:35 | External Medical Summary ---
Author Name Unknown Address Unknown Organization : Laboratory Report Ordering Provider Test Date Status LIZZ CHACON 06/24/2024 08:51:40 Final Observation Date Value Abnormality Reference (Units ) Status TSH AB 06/24/2024 08:51:40 NEGATIVE NEGATIVE Final This test was developed and its analytical
performance characteristics have been determined
by [employer] It has not been cleared or
approved by FDA. This assay has been validated
pursuant to the CLIA regulations and is used for
clinical purposes.
Test performed by [email or web address]
[address],
[place] [address]

Depalletizer Operator: Carey Ozuna MD,PHD,BRENNAN
Test Reported by [facility],
[employer] [facility],
[address], [place]
Everardo Bro M.D., Ph.D., Director of Laboratories
[phone], CLIA [id number] Performing Location
--- OUTSIDE RECORDS SUMMARY | 2024-11-18 08:35 | External Medical Summary ---
Author Name Unknown Address Unknown Organization K01:[facility] [address] [place] [address] Laboratory Report Ordering Provider Test Date Status LIZZ CHACON 06/24/2024 08:51:40 Final Observation Date Value Abnormality Reference (Units ) Status Magnesium 06/24/2024 08:51:40 2.4 1.5-2.6 (m g/dL) Final Performing Location [facility] - [address] [place] [address]
--- OUTSIDE RECORDS SUMMARY | 2024-11-18 08:35 | External Medical Summary ---
Author Name Unknown Address Unknown Organization K01:LABORATORY [facility] [place] - [address] [place] [address] Laboratory Report Ordering Provider Test Date Status LIZZ CHACON 06/24/2024 08:51:40 Final Observation Date Value Abnormality Reference (Units ) Status CRP, low-sensitivity 06/24/2024 08:51:40 <3 <=5 (mg/L) Final Performing Location [facility] - [address] [place] [address]
--- OUTSIDE RECORDS SUMMARY | 2024-11-18 08:35 | External Medical Summary ---
Author Name Unknown Address Unknown Organization K01:LABORATORY [facility] [place] - [address] [place] [id number] Laboratory Report Ordering Provider Test Date Status LIZZ CHACON 06/24/2024 08:51:40 Final Observation Date Value Abnormality Reference (Units ) Status Erythrocyte sedimentation rate by Photometric method 06/24/2024 08:51:40 6 <15 (mm/hour) Final Performing Location [facility] - [address] [place] [id number]
--- OUTSIDE RECORDS SUMMARY | 2024-11-18 08:35 | External Medical Summary ---
Author Name Unknown Address Unknown Organization K01:LABORATORY [facility] [place] - [address] [facility] [address] Laboratory Report Ordering Provider Test Date Status LIZZ CHACON 06/24/2024 08:51:40 Final Observation Date Value Abnormality Reference (Units ) Status WBC, Total 06/24/2024 08:51:40 6.13 4.00-10.80 (K/uL) Final RBC 06/24/2024 08:51:40 4.81 4.50-5.25 (M/uL) Final Hemoglobin 06/24/2024 08:51:40 13.9 Below low normal 14.0-16.8 (g/dL) Final HCT 06/24/2024 08:51:40 41.8 40.0-48.4 (%) Final MCV 06/24/2024 08:51:40 86.9 82.0-99.5 (fL) Final MCH 06/24/2024 08:51:40 28.9 27.0-34.0 (pg) Final MCHC 06/24/2024 08:51:40 33.3 32.0-36.0 (g/dL) Final RDW 06/24/2024 08:51:40 12.6 11.5-15.5 (%) Final Platelets 06/24/2024 08:51:40 300 140-400 (K/uL) Final MPV 06/24/2024 08:51:40 11.5 6.6-11.1 (fL) Final Nucleated erythrocytes/100 leukocytes [Ratio] in Blood by Automated count 06/24/2024 08:51:40 0 <=0 (/100 WBCs) Final Performing Location LABORATORY [facility] [place] - [address] [facility] [address]
--- OUTSIDE RECORDS SUMMARY | 2024-11-18 08:35 | External Medical Summary ---
Author Name Unknown Address Unknown Organization K01:[facility] [place] [address] [facility] [address] Laboratory Report Ordering Provider Test Date Status LIZZ CHACON 06/24/2024 08:51:40 Final Observation Date Value Abnormality Reference (Units ) Status Color of Urine by Auto 06/24/2024 08:51:40 Colorless Colorless, Light Yellow, Yellow, Dark Yellow Final Clarity, Urine 06/24/2024 08:51:40 Clear Clear Final Glucose [Mass/volume] in Urine by Automated test strip 06/24/2024 08:51:40 Negative Negative (mg/dL) Final Bilirubin.total [Presence] in Urine by Automated test strip 06/24/2024 08:51:40 Negative Negative Final Ketones [Mass/volume] in Urine by Automated test strip 06/24/2024 08:51:40 Negative Negative (mg/dL) Final Specific gravity, Urine 06/24/2024 08:51:40 1.003 1.003-1.030 Final Hemoglobin [Presence] in Urine by Automated test strip 06/24/2024 08:51:40 Negative Negative Final pH, Urine 06/24/2024 08:51:40 6.5 5.0-7.5 (Units) Final Protein [Mass/volume] in Urine by Automated test strip 06/24/2024 08:51:40 Negative Negative (mg/dL) Final Urobilinogen [Mass/volume] in Urine by Automated test strip 06/24/2024 08:51:40 Normal Normal (mg/dL) Final Nitrite [Presence] in Urine by Automated test strip 06/24/2024 08:51:40 Negative Negative Final Leukocyte esterase [Presence] in Urine by Automated test strip 06/24/2024 08:51:40 Negative Negative Final RBC, Urine 06/24/2024 08:51:40 0-2 0-2 (/HPF) Final WBC, Urine 06/24/2024 08:51:40 0-2 0-2 (/HPF) Final Bacteria [#/area] in Urine sediment by Microscopy high power field 06/24/2024 08:51:40 0-25 0-25 (/HPF) Final [facility] 06/24/2024 08:51:40 Final Culture not indicated by uri nalysis results\X09\ Performing Location [facility] [place] [facility] [address] [facility] [address]
--- OUTSIDE RECORDS SUMMARY | 2024-11-18 08:35 | External Medical Summary ---
Author Name Unknown Address Unknown Organization K01:LABORATORY [facility] [place] - [address] [place] [address] Laboratory Report Ordering Provider Test Date Status LIZZ CHACON 06/24/2024 08:51:40 Final Observation Date Value Abnormality Reference (Units ) Status Borrelia burgdorferi IgG and IgM [Interpretation] in Serum by Immunoassay 06/24/2024 08:51:40 Negative Negative Final Performing Location LABORATORY [facility] [place] - [address] [place] [address]
--- OUTSIDE RECORDS SUMMARY | 2024-11-18 08:35 | External Medical Summary ---
Author Name Unknown Address Unknown Organization K01:[facility]ORY [facility] [place] [address] [place] [address] Laboratory Report Ordering Provider Test Date Status LIZZ CHACON 06/24/2024 08:51:40 Final Observation Date Value Abnormality Reference (Units ) Status Albumin 06/24/2024 08:51:40 4.5 3.8-5.0 (g/dL) Final AST (Aspartate aminotransferase) 06/24/2024 08:51:40 46 10-50 (U/L) Final Alk Phos 06/24/2024 08:51:40 77 35-130 (U/L) Final ALT (Alanine aminotransferase) 06/24/2024 08:51:40 78 Above high normal 10-50 (U/L) Final Bilirubin, Total 06/24/2024 08:51:40 0.4 <=1.2 (mg/dL) Final Bilirubin, Direct 06/24/2024 08:51:40 <0.2 0.0-0.3 (mg/dL) Final Protein 06/24/2024 08:51:40 7.2 6.0-8.3 (g/dL) Final Performing Location LAB[facility]ATORY [facility] [place] - [address] [place] [address]
--- OUTSIDE RECORDS SUMMARY | 2024-11-18 08:35 | External Medical Summary | Summary of Care ---
Author Name Unknown Organization [facility] Address [address] [address] Phone [phone] Care Team Providers Care Postage Machine Operator Name Role Phone Antonio Falk MD Primary Care Provider [phone] Reason for Visit * Reason Comments Outpatient Testing Encounter Details Date Type Department Care Team (Latest Contact Info) Description 06/24/2024 8:50 AM EST Laboratory Laboratory [address] [place] [id number] [facility] [address] [place] [address] Aortic atherosclerosis (HCC); Arthritis of temporomandibular joint; Asthma, allergic; Lumbago; Millers' cough; Back tightness; Major depression, single episode; Fatty metamorphosis of liver; Esophageal reflux; Cerebrovascular disease, arteriosclerotic, post-stroke; Dyslipidemia, goal LDL below 160; HTN, goal below 140/90; Mitral valve disorder; Left shoulder pain; Pleuritic chest pain; Pneumonia due to organism; Abdominal pain, right upper quadrant Allergies Active Allergy Reactions Criticality Noted Date Comments Hydrochlorothiazide 10/31/2017 Breathing problems Ondansetron Hcl 10/31/2017 hives documented as of this encounter (statuses as of 06/24/2024) Medications sertraline (ZOLOFT) 100 MG Tablet 10/28/2017 Active VENTOLIN HFA 108 (90 Base) MCG/ACT inhaler 10/15/2017 Active metoprolol succinate XL (TOPROL XL) 25 MG TB24 10/08/2017 Active documented as of this encounter (statuses as of 06/24/2024) Active Problems Problem Noted Date Diagnosed Date BMI 34.0-34.9,adult documented as of this encounter (statuses as of 06/24/2024) Immunizations Name Administration Dates Next Due TDAP (age 10 and older)(Boostrix) 01/03/2015 documented as of this encounter Social History Tobacco Use Types Packs/Day Years Used Date Smoking Tobacco: Never Smokeless Tobacco: Current Snuff Comments:1 can per week Alcohol Use Standard Drinks/Week Comments No 0 (1 standard drink = 0.6 oz pur e alcohol) PHQ-2 Answer Date Recorded PHQ-2 Score 0 08/07/2018 Sex and Gender Information Value Date Recorded Sex Assigned at Not on file Legal Sex Male 10:55 AM EDT Gender Identity Not on file Sexual Orientation Not on file documented as of this encounter Plan of Treatment Pending Results Name Type Priority Associated Diagnoses Date /Time BASIC METABOLIC PANEL Lab Routine Aortic atherosclerosis (HCC) Arthritis of temporomandibular joint Asthma, allergic Lumbago Millers' cough Back tightness Major depression, single episode Fatty metamorphosis of liver Esophageal reflux Cerebrovascular disease, arteriosclerotic, post-stroke Dyslipidemia, goal LDL below 160 HTN, goal below 140/90 Mitral valve disorder Left shoulder pain Pleuritic chest pain Pneumonia due to organism Abdominal pain, right upper quadrant 06/24/2024 8:51 AM EST HEPATIC FUNCTION PANEL Lab Routine Aortic atherosclerosis (HCC) Arthritis of temporomandibular joint Asthma, allergic Lumbago Millers' cough Back tightness Major depression, single episode Fatty metamorphosis of liver Esophageal reflux Cerebrovascular disease, arteriosclerotic, post-stroke Dyslipidemia, goal LDL below 160 HTN, goal below 140/90 Mitral valve disorder Left shoulder pain Pleuritic chest pain Pneumonia due to organism Abdominal pain, right upper quadrant 06/24/2024 8:51 AM EST MAGNESIUM Lab Routine Aortic atherosclerosis (HCC) Arthritis of temporomandibular joint Asthma, allergic Lumbago Millers' cough Back tightness Major depression, single episode Fatty metamorphosis of liver Esophageal reflux Cerebrovascular disease, arteriosclerotic, post-stroke Dyslipidemia, goal LDL below 160 HTN, goal below 140/90 Mitral valve disorder Left shoulder pain Pleuritic chest pain Pneumonia due to organism Abdominal pain, right upper quadrant 06/24/2024 8:51 AM EST TSH ANTIBODY Lab Routine Aortic atherosclerosis ([facility]) Arthritis of temporomandibular joint Asthma, allergic Lumbago Millers' cough Back tightness Major depression, single episode Fatty metamorphosis of liver Esophageal reflux Cerebrovascular disease, arteriosclerotic, post-stroke Dyslipidemia, goal LDL below 160 HTN, goal below 140/90 Mitral valve disorder Left shoulder pain Pleuritic chest pain Pneumonia due to organism Abdominal pain, right upper quadrant 06/24/2024 8:51 AM EST URIC ACID Lab Routine Aortic atherosclerosis ([facility]) Arthritis of temporomandibular joint Asthma, allergic Lumbago Millers' cough Back tightness Major depression, single episode Fatty metamorphosis of liver Esophageal reflux Cerebrovascular disease, arteriosclerotic, post-stroke Dyslipidemia, goal LDL below 160 HTN, goal below 140/90 Mitral valve disorder Left shoulder pain Pleuritic chest pain Pneumonia due to organism Abdominal pain, right upper quadrant 06/24/2024 8:51 AM EST CBC WITH WBC DIFFERENTIAL Lab Routine Aortic atherosclerosis ([facility]) Arthritis of temporomandibular joint Asthma, allergic Lumbago Millers' cough Back tightness Major depression, single episode Fatty metamorphosis of liver Esophageal reflux Cerebrovascular disease, arteriosclerotic, post-stroke Dyslipidemia, goal LDL below 160 HTN, goal below 140/90 Mitral valve disorder Left shoulder pain Pleuritic chest pain Pneumonia due to organism Abdominal pain, right upper quadrant 06/24/2024 8:51 AM EST ERYTHROCYTE SEDIMENTATION RATE (ESR) Lab Routine Aortic atherosclerosis ([facility]) Arthritis of temporomandibular joint Asthma, allergic Lumbago Millers' cough Back tightness Major depression, single episode Fatty metamorphosis of liver Esophageal reflux Cerebrovascular disease, arteriosclerotic, post-stroke Dyslipidemia, goal LDL below 160 HTN, goal below 140/90 Mitral valve disorder Left shoulder pain Pleuritic chest pain Pneumonia due to organism Abdominal pain, right upper quadrant 06/24/2024 8:51 AM EST CRP (INFLAMMATORY MARKER) Lab Routine Aortic atherosclerosis ([facility]) Arthritis of temporomandibular joint Asthma, allergic Lumbago Millers' cough Back tightness Major depression, single episode Fatty metamorphosis of liver Esophageal reflux Cerebrovascular disease, arteriosclerotic, post-stroke Dyslipidemia, goal LDL below 160 HTN, goal below 140/90 Mitral valve disorder Left shoulder pain Pleuritic chest pain Pneumonia due to organism Abdominal pain, right upper quadrant 06/24/2024 8:51 AM EST LYME DISEASE ANTIBODY SCREEN WITH REFLEX TO CONFIRMATION Lab Routine Aortic atherosclerosis (HCC) Arthritis of temporomandibular joint Asthma, allergic Lumbago Millers' cough Back tightness Major depression, single episode Fatty metamorphosis of liver Esophageal reflux Cerebrovascular disease, arteriosclerotic, post-stroke Dyslipidemia, goal LDL below 160 HTN, goal below 140/90 Mitral valve disorder Left shoulder pain Pleuritic chest pain Pneumonia due to organism Abdominal pain, right upper quadrant 06/24/2024 8:51 AM EST URINALYSIS, REFLEX TO CULTURE (NOT FOR NEUTROPENIC PATIENTS) Lab Routine Aortic atherosclerosis (HCC) Arthritis of temporomandibular joint Asthma, allergic Lumbago Millers' cough Back tightness Major depression, single episode Fatty metamorphosis of liver Esophageal reflux Cerebrovascular disease, arteriosclerotic, post-stroke Dyslipidemia, goal LDL below 160 HTN, goal below 140/90 Mitral valve disorder Left shoulder pain Pleuritic chest pain Pneumonia due to organism Abdominal pain, right upper quadrant 06/24/2024 8:51 AM EST CBC Lab Routine Aortic atherosclerosis (HCC) Arthritis of temporomandibular joint Asthma, allergic Lumbago Millers' cough Back tightness Major depression, single episode Fatty metamorphosis of liver Esophageal reflux Cerebrovascular disease, arteriosclerotic, post-stroke Dyslipidemia, goal LDL below 160 HTN, goal below 140/90 Mitral valve disorder Left shoulder pain Pleuritic chest pain Pneumonia due to organism Abdominal pain, right upper quadrant 06/24/2024 8:51 AM EST DIFFERENTIAL, AUTOMATED Lab Routine Aortic atherosclerosis (HCC) Arthritis of temporomandibular joint Asthma, allergic Lumbago Millers' cough Back tightness Major depression, single episode Fatty metamorphosis of liver Esophageal reflux Cerebrovascular disease, arteriosclerotic, post-stroke Dyslipidemia, goal LDL below 160 HTN, goal below 140/90 Mitral valve disorder Left shoulder pain Pleuritic chest pain Pneumonia due to organism Abdominal pain, right upper quadrant 06/24/2024 8:51 AM EST LYME DISEASE ANTIBODY SCREEN Lab Routine Aortic atherosclerosis (HCC) Arthritis of temporomandibular joint Asthma, allergic Lumbago Millers' cough Back tightness Major depression, single episode Fatty metamorphosis of liver Esophageal reflux Cerebrovascular disease, arteriosclerotic, post-stroke Dyslipidemia, goal LDL below 160 HTN, goal below 140/90 Mitral valve disorder Left shoulder pain Pleuritic chest pain Pneumonia due to organism Abdominal pain, right upper quadrant 06/24/2024 8:51 AM EST URINALYSIS, REFLEX TO CULTURE (CUP ONLY) Lab Routine Aortic atherosclerosis (HCC) Arthritis of temporomandibular joint Asthma, allergic Lumbago Millers' cough Back tightness Major depression, single episode Fatty metamorphosis of liver Esophageal reflux Cerebrovascular disease, arteriosclerotic, post-stroke Dyslipidemia, goal LDL below 160 HTN, goal below 140/90 Mitral valve disorder Left shoulder pain Pleuritic chest pain Pneumonia due to organism Abdominal pain, right upper quadrant 06/24/2024 8:51 AM EST URINALYSIS, REFLEX TO CULTURE Lab Routine Aortic atherosclerosis (HCC) Arthritis of temporomandibular joint Asthma, allergic Lumbago Millers' cough Back tightness Major depression, single episode Fatty metamorphosis of liver Esophageal reflux Cerebrovascular disease, arteriosclerotic, post-stroke Dyslipidemia, goal LDL below 160 HTN, goal below 140/90 Mitral valve disorder Left shoulder pain Pleuritic chest pain Pneumonia due to organism Abdominal pain, right upper quadrant 06/24/2024 8:51 AM EST Health Maintenance Due Date Last Done Comments Pneumococcal Vaccine: Pediat rics (0 to 5 Years) and At-Risk Patients (6 to 64 Years) (1 of 2 - PCV) 2001 HIV Screening 2010 Hepatitis C Screening 2013 Hepatitis B Vaccine (1 of 3 - 19+ 3-dose series) 2014 Depression Screening 09/17/2019 09/17/2018 COVID-19 Vaccine (2023-2 5 season) 2024 Influenza Vaccine (FLU shot) (#1) 2024 DTap/Tdap Vaccines (2 - Td o r Tdap) 01/03/2025 01/03/2015 HPV (Gardasil) Vaccine Aged Out No lo nger eligible based on patient's age to complete this topic MENINGOCOCCAL (MENACTRA/MENVEO) Aged Out No longer eligible based on patient's age to complete this topic documented as of this encounter Medical Devices Not on filedocumented as of this encounter Visit Diagnoses Diagnosis Aortic atherosclerosis (HCC) Atherosclerosis of aorta Arthritis of temporomandibular joint Other specified temporomandibular joint disorders Asthma, allergic Unspecified asthma Lumbago Millers' cough Cough Back tightness Other symptoms referable to back Major depression, single episode Major depressive disorder, single episode, unspecified Fatty metamorphosis of liver Other chronic nonalcoholic liver disease Esophageal reflux Cerebrovascular disease, arteriosclerotic, post-stroke Cerebral atherosclerosis Dyslipidemia, goal LDL below 160 Other and unspecified hyperlipidemia HTN, goal below 140/90 Unspecified essential hypertension Mitral valve disorder Mitral valve disorders Left shoulder pain Pain in joint, shoulder region Pleuritic chest pain Painful respiration Pneumonia due to organism Pneumonia due to other specified organism Abdominal pain, right upper quadrant documented in this encounter Care Teams Postage Machine Operator Relationship Specialty Start Date End Date Antonio Falk MD PCP - General Family Medicine 11/13/17 documented as of this encounter
--- OUTSIDE RECORDS SUMMARY | 2024-11-18 08:35 | External Medical Summary ---
Author Name Unknown Address Unknown Organization [id number]:LABORATORY [facility] [place] - [address] [facility] [address] Laboratory Report Ordering Provider Test Date Status LIZZ CHACON 06/24/2024 08:51:40 Final Observation Date Value Abnormality Reference (Units ) Status BUN 06/24/2024 08:51:40 9 6-20 (mg/dL) Final Creatinine 06/24/2024 08:51:40 1.2 0.6-1.2 (mg/dL) Final Glomerular filtration rate/1.73 sq M.predicted [Volume Rate/Area] in Serum, Plasma or Blood by Creatinine-based formula (CKD-EPI) 06/24/2024 08:51:40 87 >=60 (mL/min) Final eGFR is calculated based on the CKD-EPI 2020 equation. Sodium 06/24/2024 08:51:40 138 135-146 (m mol/L) Final Potassium 06/24/2024 08:51:40 3.9 3.5-5.1 (m mol/L) Final Cl 06/24/2024 08:51:40 101 98-107 (mm ol/L) Final CO2 06/24/2024 08:51:40 23 22-32 (mmo l/L) Final Anion gap 06/24/2024 08:51:40 14 7-15 (mmol /L) Final Glucose 06/24/2024 08:51:40 113 70-120 (mg /dL) Final Calcium 06/24/2024 08:51:40 9.3 8.4-10.2 ( mg/dL) Final Performing Location LABOR[facility]ORY [facility] [place] - [address] [facility] [address]
--- OUTSIDE RECORDS SUMMARY | 2024-11-18 08:35 | External Medical Summary ---
Author Name Unknown Address Unknown Organization [id number]:LABORATORY [facility] [place] - [address] [facility] [address] Laboratory Report Ordering Provider Test Date Status LIZZ CHACON 06/24/2024 08:51:40 Final Observation Date Value Abnormality Reference (Units ) Status SYNC LEUKOCYTES IN BLOOD BY AUTOMATED COUNT 06/24/2024 08:51:40 6.13 4.00-10.80 (K/uL) Final Segs 06/24/2024 08:51:40 59.6 40.0-75.0 (%) Final Lymphs % 06/24/2024 08:51:40 23.8 18.0-42.0 (%) Final Monos 06/24/2024 08:51:40 9.8 1.0-11.0 (%) Final Eosinophils 06/24/2024 08:51:40 4.7 0.0-6.0 (%) Final Basos 06/24/2024 08:51:40 1.8 0.0-2.0 (%) Final Immature Granulocyte, Percent 06/24/2024 08:51:40 0.3 0.0-2.0 (%) Final Absolute Segs 06/24/2024 08:51:40 3.65 1.80-7.70 (K/uL) Final Lymphs, absolute 06/24/2024 08:51:40 1.46 1.00-4.80 (K/ul) Final Monos, Abs 06/24/2024 08:51:40 0.60 0.00-1.10 (K/uL) Final Eos, Abs 06/24/2024 08:51:40 0.29 0.00-0.70 (K/uL) Final Basos, Abs 06/24/2024 08:51:40 0.11 0.00-0.20 (K/uL) Final Immature Granulocytes, Number 06/24/2024 08:51:40 0.02 0.00-0.20 (K/uL) Final Performing Location LABORATORY [facility] [place] - [address] [facility] [address]
--- OUTSIDE RECORDS SUMMARY | 2024-11-18 08:35 | External Medical Summary ---
Author Name Unknown Address Unknown Organization K01:LABORATORY [facility] [place] - [address] [place] [address] Laboratory Report Ordering Provider Test Date Status [id number] 06/24/2024 08:51:40 Final Observation Date Value Abnormality Reference (Units ) Status Uric Acid 06/24/2024 08:51:40 7.9 Above high normal 3. 4-7.0 (mg/dL) Final Performing Location LABORATORY [facility] - [address] [place] [address]
--- OUTSIDE RECORDS SUMMARY | 2024-11-18 08:35 | External Medical Summary | Summary of Care ---
Author Name Unknown Organization [facility] Address [address] [place] [address] Phone [phone] Care Team Providers Care Senior Director Marketing Name Role Phone Antonio Falk MD Primary Care Provider [phone] Encounter Details Date Type Department Care Team (Late st Contact Info) Description 06/24/2024 Orders Only Radiology [address] [place] [address] Requisition, External Radiology [address] [place] [address] Pneumonia due to organism* Allergies Active Allergy Reactions Criticality Noted Date [...] as of this encounter Plan of Treatment Scheduled Orders Name Type Priority Associated Diagnoses Orde r Schedule XR CHEST 1 VIEW Medical Imaging Routine Pneumonia due to organism Ordered: 06/24/2024 Health Maintenance Due Date Last Done Comments Pneumococcal Vaccine: Pediat rics (0 to 5 Years) and At-Risk Patients (6 to 64 Years) (1 of 2 - PCV) 2001 HIV Screening 2010 Hepatitis C Screening 2013 Hepatitis B Vaccine (1 of 3 - 19+ 3-dose series) 2014 Depression Screening 09/17/2019 09/17/2018 COVID-19 Vaccine ( - 2023-2 5 season) 2024 Influenza Vaccine (FLU shot) [...] as of this encounter Visit Diagnoses Diagnosis Pneumonia due to organism- Primary Pneumonia due to other specified organism documented in this encounter Care Teams Senior Director Marketing Relationship Specialty Start Date End Date Antonio Falk MD PCP - General Family Medicine 11/13/17 documented as of this encounter
[2024-11-18] MEDS: PIPERACILLIN/TAZOBACTAM 4.5 GM/100 ML BAG IV SCH (08:38)
--- NOTE | 2024-11-18 10:08 | Anesthesiology Consultation ---
Date of Service November 18, 2024 Assessment & Plan Chart Review Chart Review: Acceptable Risk for Surgery and Patient NOT seen in Pre Admission Testing Consults Requested none ASA [id number] Proposed Anesthesia Anesthesia Type: General Risk / Benefits Reviewed With: PT / POA / Parent / Guardian, Accepts Plan and Informed Consent Obtained History Surgery Operation Date: 11/18/24 07:00 Proposed Procedures p Laparoscopic Appendectomy - Oscar Weir, DO Height/Weight Height: 5 ft 8 in Weight: 104.9 kg Allergies Allergy/AdvReac Type Severity Reaction Status Date / Time hydrochlorothiazide Allergy Severe Anaphylaxis Verified 11/17/24 22:45 fenofibrate Allergy Intermediate Hives Verified 11/17/24 22:45 ondansetron Allergy Intermediate itching Verified 11/17/24 22:45 atorvastatin AdvReac Intermediate muscle Verified 11/17/24 22:45 aches gemfibrozil AdvReac Intermediate LEG PAIN Verified 11/17/24 22:45 citalopram AdvReac Mild foggy Verified 11/17/24 22:45 Medications Home Medications Medication Instructions Recorded Confirmed Last Taken hydroxyzine HCl 25 mg tablet 25 mg PO BID PRN anxiety #60 tabs 07/01/23 11/17/24 Unknown albuterol sulfate 90 mcg/actuation 1 - 2 inh inhalation .Q4-6HR PRN 11/17/24 11/17/24 Unknown aerosol inhaler (Ventolin HFA) shortness of breath or wheezing amlodipine 10 mg tablet 10 mg PO HS 11/17/24 11/17/24 11/16/24 amoxicillin 875 mg-potassium 1 tab PO BID 11/17/24 11/17/24 Unknown clavulanate 125 mg tablet cholecalciferol (vitamin D3) 125 5,000 unit PO HS 11/17/24 11/17/24 11/16/24 mcg (5,000 unit) tablet (Vitamin D3) clonidine HCl 0.1 mg tablet 0.1 mg PO HS 11/17/24 11/17/24 11/16/24 sertraline 100 mg tablet 100 mg PO QAM 11/17/24 11/17/24 11/17/24 oxycodone 5 mg tablet 5 - 10 mg (1 - 2 x 5 mg) PO 11/18/24 Unknown .[id number] PRN pain, for initial therapy, max 6 tabs per day #12 tabs Active Medications Generic Name Dose Route Start Last Admin Trade Name Cecilia PRN Reason Stop Dose Admin Sodium Chloride 1,000 mls @ 100 mls/hr 11/18/24 00:30 11/18/24 01:33 Nss IV 11/19/24 00:29 100 mls/hr .Q10H JETHRO Administration Piperacillin Sod/Tazobactam Sod 4.5 gm in 100 mls @ 25 mls/hr 11/18/24 08:00 11/18/24 08:38 Zosyn IV 11/28/24 07:59 25 mls/hr Q8H JETHRO Administration Protocol NPO Date Last Intake of Fluids: 11/18/24 Time Last Intake of Fluids: 02:15 Date Last Intake of Solids: 11/17/24 Time Last Intake of Solids: 12:00 Past Medical History Medical History Gastric ulcer Hypermagnesemia Protrusion of lumbar intervertebral disc Abnormal mammogram of right breast Degenerative disc disease Temporomandibular joint disorder Exercise / Class Metabolic Activity II 4-5 Yardwork/Stairs/Walk up hill Past Family History Family History Mother Family history of diabetes mellitus Anxiety Heart disease Gallbladder disease Hypertension Kidney disease Kidney stones Cancer Ovarian Ovarian cancer Diabetes Family/Other Family hx colonic polyps Myocardial infarction Grandmother (Maternal) Family hx colonic polyps Father Anxiety Bipolar disorder Heart disease Depression Gallbladder disease Hypertension Kidney disease Kidney stones Diabetes TYPE 2 Sister Anxiety Grandfather (Maternal) Prostate cancer Aunt Diabetes Uncle Diabetes Denies family history of Breast cancer Colorectal cancer Past Surgical History Surgical History History of tooth extraction Past Anesthesia History No Hx of Anesthesia Complications and No Family Hx of Anesthesia Complications History of PONV No Hx of PONV and No Hx of Motion Sickness Social History Smoking Status: Never smoker tobacco type: smokeless tobacco Smoking cigarettes per day: 2-3 per week Do You Dip or Chew Tobacco: Yes Hx Alcohol Use: No Hx Substance Use: No substance use type: does not use Physical Exam Vital Signs Last Vital Signs Temp 37.1 C 11/18/24 09:41 Pulse 88 11/18/24 09:44 Resp 18 11/18/24 09:44 BP 161/103 H 11/18/24 09:44 Pulse Ox 97 11/18/24 09:44 O2 Del Method Room Air 11/18/24 09:44 Constitutional + obese; no acute distress ENMT Mouth: + TMJ abnormality Thyromental Distance: > or= 3.5 Finger Breadths Mallampati Class: II Neck normal visual inspection, trachea midline and + facial hair; neck extension not limited Respiratory normal respiratory effort Auscultation: lungs clear to auscultation bilaterally Cardiovascular Rate/Rhythm: regular rate and regular rhythm Heart Sounds: no murmur Vessels: no carotid bruit Musculoskeletal Spine: normal cervical ROM and no pain with cervical ROM Extremities: extremities normal to inspection; full ROM of extremities Neurologic moves all extremities Motor/Sensory: no sensory deficit Psychiatric Orientation: alert and oriented x 3 Testing Laboratory Results 11/18/24 06:07 11/18/24 06:07 PT 10.7 Seconds (9.0-12.0) 11/18/24 01:15 INR 1.0 (0.9-1.1) 11/18/24 01:15 APTT 30 Seconds (21-31) 11/18/24 01:15 Urine Color Yellow 11/17/24 19:15 Urine Appearance Clear (Clear) 11/17/24 19:15 Urine pH 6.5 (4.5-7.5) 11/17/24 19:15 Ur Specific [place] 1.003 (1.000-1.030) 11/17/24 19:15 Urine Protein Negative (Negative) 11/17/24 19:15 Urine Glucose (UA) Negative (Negative) 11/17/24 19:15 Urine Ketones Negative (Negative) 11/17/24 19:15 Urine Nitrite Negative (Negative) 11/17/24 19:15 Ur Leukocyte Esterase Negative (Negative) 11/17/24 19:15
[2024-11-18] MEDS ORDERED: PROMETHAZINE HCL 6.25 MG in SODIUM CHLORIDE 0.9% 50 ML IV PRN (10:09)
[2024-11-18] MEDS ORDERED: LABETALOL HCL IV 5 MG/ML 20ML IV PRN (10:09)
[2024-11-18] MEDS ORDERED: fentaNYL citrate PF 100 MCG/2 ML VIAL IV PRN (10:09)
[2024-11-18] MEDS ORDERED: ePHEDrine sulfate 50 MG/ML AMP IV PRN (10:09)
[2024-11-18] MEDS ORDERED: NALOXONE HCL 0.4 MG/1 ML VIAL/CARP IV PRN (10:09)
[2024-11-18] MEDS ORDERED: HYDROmorphone INJ 1 MG/ML SYRINGE IV PRN (10:09)
[2024-11-18] MEDS ORDERED: ATROPINE SULFATE 0.1 MG/ML 10ML SYR IV PRN (10:09)
[2024-11-18] MEDS ORDERED: FLUMAZENIL 0.1 MG/1 ML 10 ML VIAL IV PRN (10:09)
[2024-11-18] MEDS ORDERED: SUCCINYLCHOLINE CHLORIDE 20 MG/ML 10 ML VIAL IV ONE (10:19)
[2024-11-18] MEDS ORDERED: SUGAMMADEX SODIUM 200 MG/2 ML VIAL IV ONE (10:56)
[2024-11-18] MEDS: BUPIVACAINE/EPINEPHRINE 0.5% MPF 1:200,000 30 ML VIAL ONE (10:58)
--- NOTE | 2024-11-18 11:07 | Operative Report ---
PG Post Operative Report Pre & Post Diagnosis Operation Date: 11/18/24 07:00 Pre-Op Diagnosis: Acute appendicitis Post-Op Diagnosis: Acute appendicitis I identified the patient and participated in the time-out.: Yes Procedure Operation Date: 11/18/24 07:00 Actual Procedures p Laparoscopic Appendectomy(Not Applicable) - Oscar Weir DO Surgeon Oscar Weir DO Supervisory Examiner rashaun Treadwell Estimated Blood Loss 50 Findings Consistent with Post-Op Diagnosis Specimens appendix Description of Procedure After informed consent was obtained the patient was taken to the operating room and placed in supine position. After successful intubation the abdomen was sterilely prepped and draped in usual fashion. I began by making a p eriumbilical incision with an 11 blade scalpel and carried this down through the soft tissue using electrocautery. The anterior rectus fascia was opened using electrocautery and 2 #0 Vicryl stay sutures were placed. The peritoneum was elevated using hemostats and incised under direct vision using a Metzenbaum scissor. A finger sweep was performed. A 12 mm Reza trocar was placed and the abdomen was insufflated to 18 mmHg. A laparoscope was inserted and the abdomen was examined in 360. A suprapubic 5 mm port and a left lower quadrant 12 mm port were placed under direct vision. The patient was air planed to the left as well as placed in a slight Trendelenburg position. We began by looking in the right lower quadrant. We were able to readily identify the appendix and it was grossly inflamed. It had not perforated. There is a small amount of purulent fluid in the right lower quadrant and the pelvis. We immediately irrigated and suctioned this out. I was able to use primarily blunt dissection to pull the appendix away from the right lower quadrant sidewall. Made a window in the mesentery of the appendix. I was then able to use a BANDAR brown cartridge stapler to transect first the mesentery of the appendix followed by the appendix itself at its base with the cecum. It was then placed into an Endo Catch bag and removed from the camera port site. We thoroughly irrigated the right lower quadrant as well as the pelvis. There was a small amount of bleeding along the staple line of the mesentery. I used a medium clip spring assembler to control this. Once we accomplish this, there was adequate hemostasis. I ran the small bowel backwards from the terminal ileum for about 6 feet all of which was normal. All the peritoneal surfaces were normal. Small/ large bowel, liver, stomach etc. all appeared grossly normal. We did a final irrigation and then removed all the trochars and desufflated the abdomen. The fascia of the camera port as well as the left lower quadrant were closed using 0 Vicryl in [id number] fashion. Wounds were all irrigated and closed using 4-0 Monocryl. Marcaine was injected around them for postoperative analgesia and skin glue used as a dressing. The patient was awakened, extubated and transferred to recovery in stable condition. My ROOM MAID real estate legal assistant was present through the entire case. She assisted with prepping the patient and helped with exposure for port placement, helped run the camera and helped with fascial/wound closure at the end of the procedure as well as dressing placement. I attest to the content of the Intraoperative Record and any orders documented therein. Any exceptions are noted below. I attest to the content of the Intraoperative Record and any orders documented therein. Any exceptions are noted below.
--- NOTE | 2024-11-18 11:53 | Anesthesiology Progress Note ---
Date of Service November 18, 2024 Anesthesia Post Procedure Vital Signs Vital Signs: Temp Pulse Pulse Pulse Resp BP BP 11/18/24 11:45 36.4 C L 92 H 16 158/93 H 11/18/24 11:35 97 H 17 159/94 H 11/18/24 11:25 82 15 143/78 H 11/18/24 11:17 36.0 C L 94 H 14 144/94 H 11/18/24 09:44 88 18 161/103 H 11/18/24 09:41 37.1 C 99 H 18 198/119 H 11/18/24 07:18 36.5 C 76 16 154/89 H 11/18/24 02:15 36.6 C 71 18 158/95 H 11/18/24 01:52 11/18/24 01:41 71 20 126/97 11/18/24 01:00 79 17 122/83 11/18/24 00:39 76 13 140/86 11/18/24 00:00 77 16 154/93 H 11/17/24 23:09 81 21 142/103 H 11/17/24 22:00 78 20 114/88 11/17/24 21:49 81 11/17/24 19:00 36.7 C 92 H 18 169/104 H Pulse Ox O2 Del Method O2 Flow Rate 11/18/24 11:45 95 Room Air 2 11/18/24 11:35 96 Nasal Cannula 2 11/18/24 11:25 96 Oxymask 12 11/18/24 11:17 92 Oxymask 12 11/18/24 09:44 97 Room Air 11/18/24 09:41 98 Room Air 11/18/24 07:18 95 Room Air 11/18/24 02:15 96 Room Air 11/18/24 01:52 Room Air 11/18/24 01:41 98 11/18/24 01:00 97 11/18/24 00:39 95 11/18/24 00:00 97 11/17/24 23:09 96 11/17/24 22:00 95 11/17/24 21:49 11/17/24 19:00 98 Room Air Pain Intensity Right Flank: Pain Intensity: 2 Transfer of Care Handoff Completed per policy Notes Mental Status: alert / awake / arousable Patient Amnestic to Procedure: Yes Nausea / Vomiting: adequately controlled Pain: adequately controlled Airway Patency, RR, SpO2: stable & adequate BP & HR: stable & adequate Hydration State: stable & adequate Anesthetic Complications: no major complications apparent
[2024-11-18] MEDS ORDERED: ACETAMINOPHEN 325 MG TAB PO PRN (11:55)
[2024-11-18] MEDS ORDERED: oxyCODONE HCL IR 5 MG TAB (IMMEDIATE RELEASE) PO PRN ×2 (11:55)
[2024-11-18] MEDS ORDERED: MoRPHine SULFATE 2 MG/ML CARP IV PRN (11:55)
[2024-11-18] MEDS: ACETAMINOPHEN 1,000 MG/100 ML VIAL IV PRN (12:30)
[2024-11-18 15:06] VITALS: RESP 18; TEMP 97.7
[2024-11-18 17:12] VITALS: BP 132/88; PULSE 86; O2SAT 95
[2024-11-18] MEDS ORDERED: amLODIPine BESYLATE 5 MG TAB PO SCH (21:00)
[2024-11-18] MEDS ORDERED: cloNIDine HCL 0.1 MG TAB PO SCH (21:00)
== END 2024-11-18 17:49 | disposition home or self-care (01) ==
LOC: ED 18:32 → INTOOBSV 11-18 00:28 → 3W 11-18 00:28
DX: I10 Essential (primary) hypertension; F17.220 Nicotine dependence, chewing tobacco, uncomplicated; Z79.899 Other long term (current) drug therapy; Z88.8 Allergy status to other drugs, medicaments and biological substances; K35.80 Unspecified acute appendicitis